=== PATIENT | male | born 1985 | race Caucasian/White ===

== ENCOUNTER → 2022-06-12 17:37 | Outpatient (CLI) | payer OTHER, SELFPAY ==
[2022-06-12 18:08] LABS: Add Manual Diff / Slide Review NO; Basophils Absolute Auto 100 /uL (0-100); Basophils Percent Auto 0.9 % (0-2); Eosinophils Absolute Auto 100 /uL (0-450); Eosinophils Percent Auto 0.9 % (2-4); Hematocrit 42.2 % (41-53); Hemoglobin 14.7 g/dL (13.5-17.5); Lymphocytes Absolute Auto 2700 /uL (1100-4500); Lymphocytes Percent Auto 39.6 % (25-40); Mean Corpuscular HGB Conc 34.9 % (30-36); Mean Corpuscular Hemoglobin 32.1 PG (26-34); Mean Corpuscular Volume 91.8 fL (80-100); Monocytes Absolute Auto 400 /uL (0-900); Monocytes Percent Auto 6.5 % (3-14); Neutrophils Absolute Auto 3500 /uL (1500-7000); Neutrophils Percent Auto 52.1 % (50-75); Platelet Count 227 X10^3/uL (150-400); Red Blood Cell Count 4.59 X10^6/uL (4.5-5.9); Red Cell Distribution Width 12.2 % (11.6-14.8); White Blood Cell Count 6.8 X10^3/uL (4.5-11.0)
[2022-06-12 18:40] LABS: Alanine Aminotransferase 38 IU/L (<50); Albumin 4.5 g/dL (3.5-5.0); Albumin Globulin Ratio 1.4 (1.0-2.8); Alkaline Phosphatase 52 U/L (38-126); Aspartate Aminotransferase 38 IU/L (17-59); BUN Creatinine Ratio 15.9 (6-22); Bilirubin Total 0.4 mg/dL (0.2-1.3); Blood Urea Nitrogen 14 mg/dL (9-20); Calcium 9.7 mg/dL (8.4-10.2); Carbon Dioxide 33 mmol/L (22-32); Chloride 98 mmol/L (98-107); Cholesterol 201 mg/dL (140-199); Estimated Glomerular Filt Rate > 60 mL/min (>60); Globulin 3.2 g/dL (1.7-4.1); Glucose 98 mg/dL (70-100); HDL Cholesterol 60 mg/dL (40-60); HEMOLYSIS < 15 (0-50); LDL Cholesterol Calculated 120 mg/dL (<100); Sodium 139 mmol/L (137-145); Total Protein 7.7 g/dL (6.3-8.2); Triglycerides 103 mg/dL (35-150)
[2022-06-12 18:54] LABS: TSH w/ Reflex to FT4 2.03 uIU/mL (0.47-4.68)
== END ==
PROVIDERS: PCP Family Medicine; Referring Provider Family Medicine; Visit Provider Family Medicine
DX: Z13.220 Encounter for screening for lipoid disorders (principal)
CPT/HCPCS: 36415; 80053; 80061; 84443; 85025

== ENCOUNTER → 2022-06-15 16:30 | Outpatient (CLI) | payer OTHER, SELFPAY ==
--- NOTE | 2022-06-15 16:35 | DI.RAD.S_ITS ---
PROCEDURE: XR SHOULDER RT MIN 2V INDICATIONS: shoulder pain TECHNIQUE: 3 views of the shoulder were acquired. COMPARISON: None. FINDINGS: Bones: No fractures or dislocations. No suspicious bony lesions. Visualized ribs appear intact. Soft tissues: No suspicious soft tissue calcifications. IMPRESSION: Unremarkable radiographic examination of right shoulder. Dictated by: Sabino Epperson M.D. on 06/15/2022 at 17:38 Approved by: Sabino Epperson M.D. on 06/15/2022 at 17:38
== END ==
PROVIDERS: PCP Family Medicine; Referring Provider Family Medicine; Visit Provider Family Medicine
DX: S43.431A Superior glenoid labrum lesion of right shoulder, initial encounter (principal); M25.811 Other specified joint disorders, right shoulder
CPT/HCPCS: 73030

== ENCOUNTER → 2024-09-16 06:40 | Outpatient (CLI) | payer OTHER, SELFPAY ==
[2024-09-16 07:35] LABS: Add Manual Diff / Slide Review NO; Hematocrit 41.9 % (41-53); Hemoglobin 14.8 g/dL (13.5-17.5); Lymphocytes Absolute Auto 1700 /uL (1100-4500); Mean Corpuscular HGB Conc 35.4 % (30-36); Mean Corpuscular Hemoglobin 33.4 PG (26-34); Mean Corpuscular Volume 94.3 fL (80-100); Platelet Count 179 X10^3/uL (150-400)
[2024-09-16 07:52] LABS: Alanine Aminotransferase 178 IU/L (<50); Albumin 4.6 g/dL (3.5-5.0); Albumin Globulin Ratio 1.9 (1.0-2.8); Alkaline Phosphatase 46 U/L (38-126); Blood Urea Nitrogen 18 mg/dL (9-20); Calcium 9.8 mg/dL (8.4-10.2); Carbon Dioxide 30 mmol/L (22-32); Chloride 103 mmol/L (98-107); Cholesterol 191 mg/dL (140-199); Estimated Glomerular Filt Rate > 60 mL/min (>60); Globulin 2.4 g/dL (1.7-4.1); Glucose 100 mg/dL (70-99); HDL Cholesterol 62 mg/dL (40-60); HEMOLYSIS < 15 (0-50); Potassium 4.4 mmol/L (3.4-5.1); Sodium 139 mmol/L (137-145); Total Protein 7.0 g/dL (6.3-8.2); Triglycerides 70 mg/dL (35-150)
[2024-09-16 08:22] LABS: TSH w/ Reflex to FT4 1.99 uIU/mL (0.47-4.68)
== END ==
PROVIDERS: PCP Family Medicine; Referring Provider Family Medicine; Visit Provider Family Medicine
DX: Z00.00 Encounter for general adult medical examination without abnormal findings (principal)
CPT/HCPCS: 36415; 80053; 80061; 84443; 85025